=== PATIENT | male | born 1965 | race Caucasian/White ===

== ENCOUNTER → 2016-04-28 | Day surgery (SDC) | payer OTHER ==
[2016-04-19 11:45] VITALS: BMI 28.0
[~2016-04-28] VITALS: Ht 180.3 cm; Wt 92.3 kg
[~2016-04-28] MED LIST: ATOR10TA82 PO; BUPR-79 PO; LIDOCAINE HCL 2% 2 ML VIAL (20MG/ML) ONE; META1TAB22 PO; MIDAZOLAM HCL 1 MG/ML 2ML VIAL ONE; NAPR-1169 PO; ONDANSETRON INJ 2 MG/ML 2 ML VIAL ONE; PANT40TA PO; PARO1TAB29 PO; PARO30TA3 PO; PROPOFOL IV EMULSION 10 MG/ML 20 ML VIAL IV ONE; SENN-63 PO; ZOLP10TA PO
[2016-04-28 15:28] VITALS: Ht 180.3 cm; Wt 92.3 kg
[2016-04-28 15:35] VITALS: TEMP 37.1
--- NOTE | 2016-04-28 15:55 | Endo History and Physical ---
History & Physical Date of Service: Apr 28, 2016. Chief Complaint: epigastric pain, bloating, nausea Referring Physician: Dr. Dai History of Present Illness 50 yo CM who presents for EGD secondary to epigastric abdominal pain, bloating and nausea. Past Surgical History Hx Cardiac Surgery: No Hx Internal Defibrillator: No Hx Pacemaker: No Hx Abdominal Surgery: Yes (LAP APPY) Hx of Implantable Prosthesis: No Hx Cancer Surgery: No Hx Thoracic Surgery: No Hx Orthopedic: Yes (RT/LEFT KNEE ARTHROSCOPY, RT HAND "CROSS FINGER FLAP") Hx Urinary Tract Surgery: No Family History IBD Social History Smoking Status: Never Smoker Hx Substance Use: No Hx Alcohol Use: No Allergies Coded Allergies: Chlorhexidine (Verified Allergy, Unknown, HIVES, 04/28/16) Menthol (Verified Allergy, Unknown, SEVERE HIVES, 04/28/16) Shellfish (Verified Allergy, Unknown, ., 04/28/16) Current Medications Reported Home Medications Medications Dose Route/Sig Max Daily Dose Days Date Category Protonix (Pantoprazole Sodium) 40 Mg Tab 40 Mg PO BID 04/19/16 Reported Skelaxin (Metaxalone) 800 Mg Tab 800 Mg PO QID PRN 04/19/16 Reported Senokot (Sennosides) 8.6 Mg Tab 1 Tab PO BID PRN 04/19/16 Reported Naprosyn (Naproxen) 500 Mg Tab 500 Mg PO BID PRN 04/19/16 Reported Paroxetine (Paroxetine HCl) 30 Mg Tab 1 Tab PO QPM 04/19/16 Reported Wellbutrin Sr (Bupropion HCl) 150 Mg Ertab 150 Mg PO BID 04/19/16 Reported Ambien (Zolpidem Tartrate) 10 Mg Tab 10 Mg PO HS PRN 04/19/16 Reported Lipitor (Atorvastatin Calcium) 10 Mg Tab 10 Mg PO QPM 04/19/16 Reported Vital Signs Weight (Kilograms): 92.27 Height (Feet): 5 Height (Inches): 11 Date Time Temp Pulse Resp B/P Pulse Ox O2 Delivery O2 Flow Rate FiO2 04/28/16 15:35 37.1 90 16 146/91 96 Room Air Physical Exam General Appearance: WD/WN, no apparent distress Respiratory/Chest: Auscultation: breath sounds normal Cardiovascular: Heart Auscultation: RRR Abdomen: Bowel Sounds: normal Inspection & Palpation: soft, non-distended, no tenderness, guarding & rebound Assessment and Plan Assessment: 50 yo CM who presents for EGD secondary to epigastric abdominal pain, bloating and nausea. Plan: Proceed with EGD.
--- NOTE | 2016-04-28 16:08 | Discharge Instructions ---
Endoscopy Patient Instructions Date / Procedure(s) Performed Apr 28, 2016. EGD Allergy Information Coded Allergies: Chlorhexidine (Verified Allergy, Unknown, HIVES, 04/28/16) Menthol (Verified Allergy, Unknown, SEVERE HIVES, 04/28/16) Shellfish (Verified Allergy, Unknown, ., 04/28/16) Discharge Date / Findings Apr 28, 2016. Gastritis s/p biopsies Hiatal hernia Medication Instructions OK to resume all medications today as prescribed Reported Home Medications Medications Dose Route/Sig Max Daily Dose Days Date Category Protonix (Pantoprazole Sodium) 40 Mg Tab 40 Mg PO BID 04/19/16 Reported Skelaxin (Metaxalone) 800 Mg Tab 800 Mg PO QID PRN 04/19/16 Reported Senokot (Sennosides) 8.6 Mg Tab 1 Tab PO BID PRN 04/19/16 Reported Naprosyn (Naproxen) 500 Mg Tab 500 Mg PO BID PRN 04/19/16 Reported Paroxetine (Paroxetine HCl) 30 Mg Tab 1 Tab PO QPM 04/19/16 Reported Wellbutrin Sr (Bupropion HCl) 150 Mg Ertab 150 Mg PO BID 04/19/16 Reported Ambien (Zolpidem Tartrate) 10 Mg Tab 10 Mg PO HS PRN 04/19/16 Reported Lipitor (Atorvastatin Calcium) 10 Mg Tab 10 Mg PO QPM 04/19/16 Reported Provider Instructions Activity Restrictions - No exercising or heavy lifting for 24 hours. - Do not drink alcohol the day of the procedure. - Do not drive a car or operate machinery until the day after the procedure. - Do not make any important decisions or sign important papers in 24 hours after the procedure. Following Day: - Return to full activity which may include returning to work/school. Diet Start your diet with liquids and light foods (jello, soup, juice, toast). Then eat your usual diet if not nauseated. Treatment For Common After Affects For mild abdominal pain, bloating, or excessive gas: - Rest - Eat lightly - Lie on right side Follow-Up Information Follow-up with Dr. Dai as scheduled Anesthesia Information What You Should Know You have had a procedure that required some medicine to reduce anxiety and discomfort. This treatment is called moderate sedation. After receiving the treatment, you may be sleepy, but you will be able to breathe on your own. The effects of the treatment may last for several hours. Follow these instructions along with Activity/Diet recommendations noted above: * Do NOT do anything where dizziness or clumsiness would be dangerous. * Rest quietly at home today, then you can be up and about tomorrow. * Have a responsible person stay with you the rest of today. * You may have had an I.V. today. If so, you may take the dressing off later today. Recommendations Call your doctor if: * Trouble breathing * Continuous vomiting for more than 24 hours * Temperature above 101 degrees * Severe abdominal pain or bloating * Pain not relieved by pain medicine ordered * There is increased drainage or redness from any incision * A large amount of rectal bleeding greater than 2-3 tablespoons. (If you had a polyp/s removed or have hemorrhoids, a small amount of blood - from the rectum is to be expected.) * You have any unanswered questions or concerns. IN THE EVENT OF A SERIOUS EMERGENCY, GO TO THE NEAREST EMERGENCY ROOM Your discharge instructions were prepared by provider Aleks Carson. Patient Instructions Signature Page Slava Mohan Patient (or Guardian) Signature/Date: I have read and understand the instructions given to me by my caregivers. Caregiver/RN/Doctor Signature/Date: The above-named patient and/or guardian has received patient instructions on this date. + Original Patient Signature Page (only) stays with chart. Please make copy for patient.
--- NOTE | 2016-04-28 16:18 | GI REPORT ---
Procedure Date: 04/28/2016 3:43 PM Procedure: Upper GI endoscopy Indications: Gastro-esophageal reflux disease, Nausea Medicines: Monitored Anesthesia Care Complications: No immediate complications. Estimated Blood Loss: Estimated blood loss: none. Procedure: Pre-Anesthesia Assessment: - Prior to the procedure, a History and Physical was performed, and patient medications and allergies were reviewed. The patient's tolerance of previous anesthesia was also reviewed. The risks and benefits of the procedure and the sedation options and risks were discussed with the patient. All questions were answered, and informed consent was obtained. Prior Anticoagulants: The patient has taken no previous anticoagulant or antiplatelet agents. ASA Grade Assessment: II - A patient with mild systemic disease. After reviewing the risks and benefits, the patient was deemed in satisfactory condition to undergo the procedure. After obtaining informed consent, the endoscope was passed under direct vision. Throughout the procedure, the patient's blood pressure, pulse, and oxygen saturations were monitored continuously. The Scope was introduced through the mouth, and advanced to the second part of duodenum. The upper GI endoscopy was accomplished without difficulty. The patient tolerated the procedure well. Findings: The esophagus was normal. A small hiatus hernia was present. Localized mild inflammation characterized by erythema was found in the gastric antrum. Biopsies were taken with a cold forceps for histology. The examined duodenum was normal. Impression: - Normal esophagus. - Small hiatus hernia. - Gastritis. Biopsied. - Normal examined duodenum. Recommendation: - Resume previous diet. - Continue present medications. - Await pathology results. - Return to GI office as previously scheduled. Aleks Carson DO 04/28/2016 4:17:14 PM This report has been signed electronically. Note Initiated On: 04/28/2016 3:43 PM
--- NOTE | 2016-04-28 16:31 | Anesthesiology Progress Note ---
Anesthesia Post Op Note Date & Time Apr 28, 2016 at 16:30 Vital Signs Pain Intensity: 0 Vital Signs Past 12 Hours Date Time Temp Pulse Resp B/P Pulse Ox O2 Delivery O2 Flow Rate FiO2 04/28/16 16:24 81 18 136/82 94 Room Air 04/28/16 16:10 81 16 126/76 95 Room Air 04/28/16 15:35 37.1 90 16 146/91 96 Room Air Notes Mental Status: alert / awake / arousable Nausea / Vomiting: adequately controlled Pain: adequately controlled Airway Patency, RR, SpO2: stable & adequate BP & HR: stable & adequate Hydration State: stable & adequate Anesthetic Complications: no major complications apparent
[2016-04-28 16:40] VITALS: BP 131/79; PULSE 79; O2SAT 94
== END | disposition home or self-care (01) ==
LOC: C.GI 14:42
PROVIDERS: ATTEND Internal Medicine
DX: K21.9 Gastro-esophageal reflux disease without esophagitis (principal); K29.70 Gastritis, unspecified, without bleeding; K44.9 Diaphragmatic hernia without obstruction or gangrene; Z83.79 Family history of other diseases of the digestive system; Z90.49 Acquired absence of other specified parts of digestive tract; Z98.890 Other specified postprocedural states; Z88.8 Allergy status to other drugs, medicaments and biological substances

== ENCOUNTER → 2016-05-31 | Day surgery (SDC) | payer OTHER ==
[2016-05-26 15:21] VITALS: BMI 27.0
[~2016-05-31] VITALS: Ht 180.3 cm; Wt 87.7 kg
[~2016-05-31] MED LIST changes: -ATOR10TA82 PO; +ATOR10TA88 PO; -ONDANSETRON INJ 2 MG/ML 2 ML VIAL ONE; -PARO30TA3 PO; +SODIUM CHLORIDE 0.9% 500ML 500 ML IV ONE
[2016-05-31 15:00] VITALS: Ht 180.3 cm; Wt 87.7 kg
[2016-05-31 15:10] VITALS: TEMP 36.8
--- NOTE | 2016-05-31 15:29 | Endo History and Physical ---
History & Physical Date of Service: May 31, 2016. Chief Complaint: change in bowel habits Referring Physician: Dr. Dai History of Present Illness 50 yo CM who presents for colonoscopy secondary to change in bowel habits. Past Surgical History Hx Cardiac Surgery: No Hx Internal Defibrillator: No Hx Pacemaker: No Hx Abdominal Surgery: Yes (LAP APPY) Hx Post-Op Nausea and Vomiting: No Hx Cancer Surgery: No Hx Thoracic Surgery: No Hx Orthopedic: Yes (RT/LEFT KNEE ARTHROSCOPY, RT HAND "CROSS FINGER FLAP") Hx Urinary Tract Surgery: No Family History IBD Social History Smoking Status: Never Smoker Hx Substance Use: No Hx Alcohol Use: No Allergies Coded Allergies: Chlorhexidine (Verified Allergy, Unknown, HIVES, 05/26/16) Menthol (Verified Allergy, Unknown, SEVERE HIVES, 05/26/16) Shellfish (Verified Allergy, Unknown, ., 05/26/16) Current Medications Reported Home Medications Medications Dose Route/Sig Max Daily Dose Days Date Category Paxil (Paroxetine HCl) 40 Mg Tab 40 Mg PO QPM 05/26/16 Reported Protonix (Pantoprazole Sodium) 40 Mg Tab 40 Mg PO BID 04/19/16 Reported Skelaxin (Metaxalone) 800 Mg Tab 800 Mg PO QID PRN 04/19/16 Reported Senokot (Sennosides) 8.6 Mg Tab 1 Tab PO BID PRN 04/19/16 Reported Naprosyn (Naproxen) 500 Mg Tab 500 Mg PO BID PRN 04/19/16 Reported Wellbutrin Sr (Bupropion HCl) 150 Mg Ertab 150 Mg PO BID 04/19/16 Reported Ambien (Zolpidem Tartrate) 10 Mg Tab 10 Mg PO HS PRN 04/19/16 Reported Lipitor (Atorvastatin Calcium) 10 Mg Tab 10 Mg PO QPM 04/19/16 Reported Vital Signs Weight (Kilograms): 87.73 Height (Feet): 5 Height (Inches): 11 Date Time Temp Pulse Resp B/P Pulse Ox O2 Delivery O2 Flow Rate FiO2 05/31/16 15:10 36.8 88 20 139/81 96 Room Air Physical Exam General Appearance: WD/WN, no apparent distress Respiratory/Chest: Auscultation: breath sounds normal Cardiovascular: Heart Auscultation: RRR Abdomen: Bowel Sounds: normal Inspection & Palpation: soft, non-distended, no tenderness, guarding & rebound Assessment and Plan Assessment: 50 yo CM who presents for colonoscopy secondary to change in bowel habits. Plan: Proceed with colonoscopy.
--- NOTE | 2016-05-31 16:02 | Anesthesiology Progress Note ---
Anesthesia Post Op Note Date & Time May 31, 2016 at 16:02 Vital Signs Pain Intensity: 0 Vital Signs Past 12 Hours Date Time Temp Pulse Resp B/P Pulse Ox O2 Delivery O2 Flow Rate FiO2 05/31/16 15:54 83 20 98/51 95 Room Air 05/31/16 15:10 36.8 88 20 139/81 96 Room Air Notes Mental Status: alert / awake / arousable, participated in evaluation Pt Amnestic to Procedure: Yes Nausea / Vomiting: adequately controlled Pain: adequately controlled Airway Patency, RR, SpO2: stable & adequate BP & HR: stable & adequate Hydration State: stable & adequate Anesthetic Complications: no major complications apparent
--- NOTE | 2016-05-31 16:10 | Discharge Instructions ---
Endoscopy Patient Instructions Date / Procedure(s) Performed May 31, 2016. Colonoscopy Allergy Information Coded Allergies: Chlorhexidine (Verified Allergy, Unknown, HIVES, 05/26/16) Menthol (Verified Allergy, Unknown, SEVERE HIVES, 05/26/16) Shellfish (Verified Allergy, Unknown, ., 05/26/16) Discharge Date / Findings May 31, 2016. Colon polyp Diverticulosis Internal hemorrhoids Anal Fissure Medication Instructions OK to resume all medications today as prescribed. Start Miralax 17 g in 8 oz glass of water daily Avoid Senna and [place]-Colace as they are stimulant laxatives Reported Home Medications Medications Dose Route/Sig Max Daily Dose Days Date Category Paxil (Paroxetine HCl) 40 Mg Tab 40 Mg PO QPM 05/26/16 Reported Protonix (Pantoprazole Sodium) 40 Mg Tab 40 Mg PO BID 04/19/16 Reported Skelaxin (Metaxalone) 800 Mg Tab 800 Mg PO QID PRN 04/19/16 Reported Senokot (Sennosides) 8.6 Mg Tab 1 Tab PO BID PRN 04/19/16 Reported Naprosyn (Naproxen) 500 Mg Tab 500 Mg PO BID PRN 04/19/16 Reported Wellbutrin Sr (Bupropion HCl) 150 Mg Ertab 150 Mg PO BID 04/19/16 Reported Ambien (Zolpidem Tartrate) 10 Mg Tab 10 Mg PO HS PRN 04/19/16 Reported Lipitor (Atorvastatin Calcium) 10 Mg Tab 10 Mg PO QPM 04/19/16 Reported Provider Instructions Activity Restrictions - No exercising or heavy lifting for 24 hours. - Do not drink alcohol the day of the procedure. - Do not drive a car or operate machinery until the day after the procedure. - Do not make any important decisions or sign important papers in 24 hours after the procedure. Following Day: - Return to full activity which may include returning to work/school. Diet Start your diet with liquids and light foods (jello, soup, juice, toast). Then eat your usual diet if not nauseated. Treatment For Common After Affects For mild abdominal pain, bloating, or excessive gas: - Rest - Eat lightly - Lie on right side Sitz bath twice daily for 2 weeks to aid in healing Anal fissure. Follow-Up Information Follow-up with Dr. Zammam as scheduled Anesthesia Information What You Should Know You have had a procedure that required some medicine to reduce anxiety and discomfort. This treatment is called moderate sedation. After receiving the treatment, you may be sleepy, but you will be able to breathe on your own. The effects of the treatment may last for several hours. Follow these instructions along with Activity/Diet recommendations noted above: * Do NOT do anything where dizziness or clumsiness would be dangerous. * Rest quietly at home today, then you can be up and about tomorrow. * Have a responsible person stay with you the rest of today. * You may have had an I.V. today. If so, you may take the dressing off later today. Recommendations Call your doctor if: * Trouble breathing * Continuous vomiting for more than 24 hours * Temperature above 101 degrees * Severe abdominal pain or bloating * Pain not relieved by pain medicine ordered * There is increased drainage or redness from any incision * A large amount of rectal bleeding greater than 2-3 tablespoons. (If you had a polyp/s removed or have hemorrhoids, a small amount of blood - from the rectum is to be expected.) * You have any unanswered questions or concerns. IN THE EVENT OF A SERIOUS EMERGENCY, GO TO THE NEAREST EMERGENCY ROOM Your discharge instructions were prepared by provider Aleks Carson. Patient Instructions Signature Page Slava Mohan Patient (or Guardian) Signature/Date: I have read and understand the instructions given to me by my caregivers. Caregiver/RN/Doctor Signature/Date: The above-named patient and/or guardian has received patient instructions on this date. + Original Patient Signature Page (only) stays with chart. Please make copy for patient.
--- NOTE | 2016-05-31 16:17 | GI REPORT ---
Procedure Date: 05/31/2016 3:08 PM Procedure: Colonoscopy Indications: Change in bowel habits Medicines: Monitored Anesthesia Care Complications: No immediate complications. Estimated Blood Loss: Estimated blood loss: none. Procedure: Pre-Anesthesia Assessment: - Prior to the procedure, a History and Physical was performed, and patient medications and allergies were reviewed. The patient's tolerance of previous anesthesia was also reviewed. The risks and benefits of the procedure and the sedation options and risks were discussed with the patient. All questions were answered, and informed consent was obtained. Prior Anticoagulants: The patient has taken no previous anticoagulant or antiplatelet agents. ASA Grade Assessment: II - A patient with mild systemic disease. After reviewing the risks and benefits, the patient was deemed in satisfactory condition to undergo the procedure. After I obtained informed consent, the scope was passed under direct vision. Throughout the procedure, the patient's blood pressure, pulse, and oxygen saturations were monitored continuously. The scope was introduced through the anus and advanced to the terminal ileum. The colonoscopy was performed without difficulty. The patient tolerated the procedure well. The quality of the bowel preparation was good. The terminal ileum, ileocecal valve, appendiceal orifice, and rectum were photographed. Findings: A 5 mm polyp was found in the ascending colon. The polyp was sessile. The polyp was removed with a hot snare. Resection and retrieval were complete. Multiple small-mouthed diverticula were found in the sigmoid colon. Non-bleeding internal hemorrhoids were found during retroflexion. The hemorrhoids were small. The perianal exam findings include anal fissure. Impression: - One 5 mm polyp in the ascending colon, removed with a hot snare. Resected and retrieved. - Diverticulosis in the sigmoid colon. - Non-bleeding internal hemorrhoids. - Anal fissure found on perianal exam. Recommendation: - Resume previous diet. - Continue present medications. - Repeat colonoscopy for surveillance based on pathology results. - Return to primary care physician as previously scheduled. Aleks Carson, 05/31/2016 4:17:22 PM This report has been signed electronically. Note Initiated On: 05/31/2016 3:08 PM I attest to the content of the Intraoperative Record and orders documented therein, exceptions below
[2016-05-31 16:24] VITALS: BP 110/67; PULSE 76; O2SAT 97
== END | disposition home or self-care (01) ==
LOC: C.GI 14:47
PROVIDERS: ATTEND Internal Medicine
DX: D12.2 Benign neoplasm of ascending colon (principal); K57.30 Diverticulosis of large intestine without perforation or abscess without bleeding; K64.8 Other hemorrhoids; K60.2 Anal fissure, unspecified; R19.4 Change in bowel habit; Z83.79 Family history of other diseases of the digestive system